=== PATIENT | female | born 1955 | race Caucasian/White ===

== ENCOUNTER → 2020-04-26 | Outpatient (CLI) | payer OTHER ==
[~2020-04-26] MED LIST: ADDERALL 30 MG30 MG PO; ADERALL; ASPERDRINK81 MG PO; BENTYL20 MG; CITROMA296 ML PO; DICYCLOMINE HCL20 MG PO; ETODOLAC 400 M400 M1 PO; FAMVIR125 MG PO; HYOSCYAMIN125 MCG/5; LEXAPRO 10 MG T10 M2 PO; MELATONIN3 MG PO; MULTIPLE VITAM1 EAC2 PO; NORCO 5-325 TA1 EACH PO; OMEPRAZOLE 20 M20 M1 PO; PERCOCET 5-3251 EACH PO; SIMVASTATIN40 MG PO; STOOL SOFTENER100 MG PO; TAMSULOSIN HCL0.4 MG PO; TRAMADOL 50 MG50 MG PO; TYLENOL325 MG PO; XANAX XR1 MG PO; ZANTAC 150MG T150 MG PO; ZOFRAN ODT4 MG PO; ZOFRAN ODT4 MG SUBLING
== END ==
LOC: M.CT 13:00
PROVIDERS: ATTEND Internal Medicine Cardiovascular Disease
DX: Z13.6 Encounter for screening for cardiovascular disorders (principal); I25.10 Atherosclerotic heart disease of native coronary artery without angina pectoris